=== PATIENT | female | born 1940 | race Caucasian/White ===

== ENCOUNTER → 2023-10-23 | Outpatient (CLI) | payer MEDICARE, SELFPAY ==
--- NOTE | 2023-10-23 13:45 | ECHOD_ITS ---
Reason For Study: Dyspnea/SOB Procedure This was a 2D Doppler, Color Flow transthoracic echocardiogram. Exam performed in department. Left Ventricle Normal LV size. The estimated ejection fraction is 60 %. Stage 2 diastolic dysfunction. No regional wall motion abnormalities noted. Right Ventricle Normal RV size. Normal systolic function. Atria The left atrium is mildly enlarged. Normal right atrium. No doppler evidence for ASD. Mitral Valve There is no mitral valve stenosis. Mild (1+) mitral valve insufficiency. Tricuspid Valve There is no tricuspid stenosis. Mild tricuspid valve insufficiency. Pulmonary artery systolic pressure is 45 mmHg. Aortic Valve Aortic sclerosis, no stenosis. Trisinus/trileaflet aortic valve. There is no aortic stenosis. No aortic valve insufficiency. Pulmonic Valve There is no pulmonic valvular stenosis. No pulmonic valve insufficiency. Great Vessels Normal aortic root. Pericardium/Pleural No pericardial effusion. MMode/2D Measurements & Calculations LVIDd: 3.8 cm IVSd: 1.0 cm Ao root diam: 3.0 cm LVIDs: 2.6 cm LVPWd: 0.90 cm LA dimension: 4.3 cm RVDd: 3.8 cm FS: 32.7 % LAV(MOD-bp): 67.8 ml LVAd ap4: 21.3 cm2 SV(MOD-sp4): 30.7 ml LAV(MOD-bp) Indexed: 42.3 ml/m2 LVLd ap4: 6.2 cm LAV(MOD-sp2): 67.6 ml EDV(MOD-sp4): 58.9 ml LAV(MOD-sp4): 63.6 ml EDV(sp4-el): 61.6 ml LVAs ap4: 14.1 cm2 LVLs ap4: 5.9 cm ESV(MOD-sp4): 28.2 ml ESV(sp4-el): 28.5 ml EF(MOD-sp4): 52.1 % EF(sp4-el): 53.8 % SV(sp4-el): 33.1 ml LA A4 area: 20.8 cm2 RA A4 area: 15.9 cm2 TAPSE: 1.7 cm Time Measurements MV dec time: 0.20 sec Doppler Measurements & Calculations MV E max dar: 69.7 cm/sec Lat Peak E' Dar: 7.3 cm/sec Med Peak E' Dar: 6.5 cm/sec MV A max dar: 69.7 cm/sec E/E' lat: 9.6 E/E' med: 10.7 MV E/A: 1.0 MV V2 max: 92.5 cm/sec MV P1/2t max dar: 92.5 cm/sec Ao V2 max: 120.9 cm/sec MV max P.4 mmHg MV P1/2t: 78.8 msec Ao max P.8 mmHg MV V2 mean: 56.6 cm/sec MV dec slope: 343.6 cm/sec2 Ao V2 mean: 86.4 cm/sec MV mean P.5 mmHg Ao mean P.4 mmHg MV V2 VTI: 23.4 cm MVA(P1/2t): 2.8 cm2 Ao V2 VTI: 30.3 cm AV (velocity ratio): 0.70 LV V1 max: 84.8 cm/sec MR max dar: 507.3 cm/sec PA V2 max: 72.9 cm/sec LV V1 max P.9 mmHg MR max P.9 mmHg LV V1 mean P.7 mmHg LV V1 mean: 61.9 cm/sec LV V1 VTI: 21.3 cm TR max dar: 306.1 cm/sec TR max P.5 mmHg ECHO/Echo Complete Interpretation Summary The estimated ejection fraction is 60 %. Stage 2 diastolic dysfunction. The left atrium is mildly enlarged. Mild (1+) mitral valve insufficiency. Ordering Physician: Joseph Latif Referring Physician: Joseph Latif Performed By: Rob Quesada RCS
--- NOTE | 2023-10-23 13:45 | CT_ITS ---
EXAM: CT CHEST WITHOUT INTRAVENOUS CONTRAST CLINICAL INDICATION: Follow up abnormal CT with GGO, interstitial thick -- TECHNIQUE: Helically acquired images were obtained of the chest without intravenous contrast. This CT exam was performed using one or more of the following dose reduction techniques: automated exposure control, adjustment of the mA and/or kV according to patient size, and/or use of iterative reconstruction technique. RADIATION DOSE: CTDIvol = 5.26 mGy, DLP = 334.85 mGy-cm COMPARISON: No relevant prior studies available. FINDINGS: LUNGS AND PLEURAL SPACES: Hyperexpansion of the lungs consistent with COPD. Diffuse interstitial prominence consistent with fibrosis. Widespread patchy areas of irregular density most consistent with focal areas of fibrosis Bilateral diffuse bronchiectasis and probable bronchitis. Findings worse in the posterior segment of the right upper lobe and especially in the right middle lobe and lingula. Several probable areas of mucous plugging. Scarring in both lung apices. There is an 8 mm nodule in the lateral mid left lung for which follow-up recommended in 12 months. No pneumothorax. No definite focal infiltrates. No effusions. HEART: Coronary artery calcifications are seen. Heart size is normal. No pericardial effusion. MEDIASTINUM: Although no gross mediastinal or hilar mass or adenopathy is seen, adenopathy is difficult to exclude without IV contrast was not given. Esophagus is unremarkable. No hiatal hernia. THYROID: Unremarkable. No thyroid lesions. BONES/JOINTS: Degenerative changes throughout the bones. Partial compression fracture of T4, L1 and L2. VASCULATURE: Calcified plaque of the aorta with no aneurysm. CT/Chest without Contrast IMPRESSION: 1. Severe COPD with interstitial fibrosis. Widespread areas of probable patchy fibrosis. Widespread bronchiectasis and chronic bronchitis most pronounced in the right apex, right middle lobe, and lingula. 2. 8mm nodule in the mid lateral left lung needs follow-up in 12 months. Electronically Signed: Willy Maguire MD at 23:02 EST ,
--- OUTSIDE RECORDS SUMMARY | 2023-10-23 22:14 | XMS RPT_ITS | CCD ---
Author Name Unknown Address [address] [facility] [address] [place] [address] Organization [facility] Care Team Providers Care Practice Consultant Name Role Phone NOHEMY COLVIN MD Primary Care Unavailable LATOUNOHEMY Soto MD Consulting Unavailable LATOUF, NOHEMY JENSEN Attending Unavailable LATOUF, NOHEMY JENSEN Admitting Unavailable PROVIDER, UNKNOWN Consulting Unavailable PROVIDER, UNKNOWN Consulting Unavailable PROVIDER, UNKNOWN Consulting Unavailable LATOUNOHEMY Soto MD Consulting Unavailable LATOUNOHEMY Soto MD Attending Unavailable LATOUNOHEMY Soto MD Referring Unavailable LATOUNOHEMY Soto MD Admitting Unavailable LATOUNOHEMY Soto MD Primary Care Unavailable PROVIDER, UNKNOWN Consulting Unavailable PROVIDER, UNKNOWN Consulting Unavailable PROVIDER, UNKNOWN Consulting Unavailable MIGUEL CORBETT Primary Care Unavailable MIGUEL CORBETT Attending Unavailable LATNOHEMY ALFONSO MD Consulting Unavailable MIGUEL CORBETT Admitting Unavailable PROVIDER, UNKNOWN Consulting Unavailable PROVIDER, UNKNOWN Consulting Unavailable PROVIDER, UNKNOWN Consulting Unavailable LATOUNOHEMY Soto MD Primary Care Unavailable LATOUNOHEMY Soto MD Consulting Unavailable LATOUNOHEMY Soto MD Attending Unavailable LATOUCharles, NOHEMY JENSEN Admitting Unavailable PROVIDER, UNKNOWN Consulting Unavailable PROVIDER, UNKNOWN Consulting Unavailable PROVIDER, UNKNOWN Consulting Unavailable LATNOHEMY ALFONSO MD Attending Unavailable LATOUF, NOHEMY JENSEN Admitting Unavailable LATOUNOHEMY Soto MD Consulting Unavailable LATOUNOHEMY Soto MD Primary Care Unavailable PROVIDER, UNKNOWN Consulting Unavailable PROVIDER, UNKNOWN Consulting Unavailable PROVIDER, UNKNOWN Consulting Unavailable LATOUNOHEMY Soto MD Consulting Unavailable LATOUCharles, NOHEMY JENSEN Attending Unavailable LATOUF, NOHEMY JENSEN Admitting Unavailable LATOUNOHEMY Soto MD Primary Care Unavailable PROVIDER, UNKNOWN Consulting Unavailable PROVIDER, UNKNOWN Consulting Unavailable PROVIDER, UNKNOWN Consulting Unavailable Problems Active Problems Problem Classification Problem Date Documented Da te Episodic/Chronic Anxiety disorders (1 source) Anxiety disorder, unspecified; Translations: [Anxiety disorder, unspecified] Onset: 05-10-2023 Chronic Deficiency and other anemia (2 sources) Iron deficiency anemia, unspecified; Translations: [Iron deficiency anemia, unspecified] Onset: 05-10-2023 Episodic Disorders of lipid metabolism (1 source) Pure hypercholesterolemi a, unspecified; Translations: [Pure hypercholesterolemi a, unspecified] Onset: 05-10-2023 Chronic Essential hypertension (2 sources) Essential (primary) hypertension; Translations: [Essential (primary) hypertension] Onset: 11-03-2022 Chronic Occlusion or stenosis of precerebral arteries (1 source) Occlusion and stenosis of bilateral carotid arteries; Translations: [Occlusion and stenosis of bilateral carotid arteries] Onset: 05-10-2023 Chronic Osteoporosis (1 source) Age-related osteoporosis without current pathological fracture; Translations: [Age-related osteoporosis without current pathological fracture] Onset: 05-10-2023 Chronic Other lower respiratory disease (1 source) Interstitial pulmonary disease, unspecified; Translations: [Interstitial pulmonary disease, unspecified] Onset: 04-28-2023 Chronic Other nutritional; endocrine; and metabolic disorders (1 source) Other disorders of plasma-protein metabolism, not elsewhere classified; Translations: [Other disorders of plasma-protein metabolism, not elsewhere classified] Onset: 05-10-2023 Chronic Unclassified (1 source) Cough, unspecified; Translations: [Cough, unspecified] Onset: 04-28-2023 Past or Other Problems Problem Classification Problem Date Documented Da te Episodic/Chronic Other aftercare (1 source) termite exterminator helper (current) use of aspirin; Translations: [shelter (current) use of aspirin] Onset: 05-10-2023 Episodic Other lower respiratory disease (2 sources) Shortness of breath; Translations: [Shortness of breath] Onset: 05-10-2023 Episodic Other lower respiratory disease (1 source) Hypoxemia; Translations: [Hypoxemia] Onset: 05-10-2023 Episodic Other lower respiratory disease (1 source) Other disorders of lung; Translations: [Other disorders of lung] Onset: 05-10-2023 Episodic Other lower respiratory disease (1 source) Other nonspecific abnormal finding of lung field; Translations: [Other nonspecific abnormal finding of lung field] Onset: 04-28-2023 Episodic Pneumonia (except that caused by tuberculosis or sexually transmitted disease) (1 source) Pneumonia, unspecified organism; Translations: [Pneumonia, unspecified organism] Onset: 05-10-2023 Episodic Unclassified (1 source) Cough, unspecified; Translations: [Cough, unspecified] Onset: 04-28-2023 Results Test Name Value Interpretation Reference Range Facil ity Encounters Encounter Date Encounter Type Care Provider Facility Start: 10-05-2023 ambulatory MIGUEL CORBETT [facility] Start: 07-18-2023 End: 07-18-2023 ambulatory NOHEMY JENSEN [facility] Start: 07-10-2023 End: 07-10-2023 ambulatory NOHEMY JENSEN [facility] Start: 05-10-2023 End: 05-13-2023 Evaluation and management of inpatient NOHEMY JENSEN [facility] Start: 04-28-2023 End: 04-28-2023 ambulatory NOHEMY JENSEN [facility] Start: 11-03-2022 End: 11-03-2022 ambulatory NOHEMY JENSEN [facility] Payers Date Payer Category Payer Unknown [id number] [id number] 1940 Unknown [id number] 2.16.8 [id number] 1940 Unknown [id number] 2.16.8 [id number] 1940 Unknown [id number] 2.16.8 [id number] 1940 Unknown [id number] 2.16.8 [id number] 1940 Unknown [id number] [id number] [id number] Medicare [id number] Discharge summary note 05-16-2023 Note Date & Type Note Facility 05-16-2023 Note [facility] DISCHARGE SUMMARY NAME ACCOUNT SEX AGE ADMIT DISCHARGE PT MED. RECORD# NUMBER DATE DATE TYPE LINNETTE JEONG [id number] F 82 05/10/23 05/13/23 1 [id number] ROOM: [facility] DATE OF : 1940 ATTENDING PHYSICIAN: Nohemy Colvin FINAL DIAGNOSES: 1. Community-acquired pneumonia with failure of outpatient therapy. 2. Iron-deficiency anemia. 3. Hypoxia secondary to a combination of pneumonia and chronic interstitial lung disease. 4. Chronic lung disease. 5. Hypertension. 6. Abnormal CT scan of the chest. DIAGNOSTIC DATA: Studies obtained this hospital stay: CT scan of the chest with contrast showed no pulmonary embolism. Patchy bilateral infiltrates were present. Bronchial wall thickening was present bilaterally and nonspecific mediastinum and hilar lymph nodes. Laboratory data on the day of discharge showed a WBC of 12.1, hemoglobin 10.9, hematocrit 33.4, and platelet count 467,000 with 75.1% neutrophils and 13.6% lymphocytes. Sodium was 136, potassium 3.7, BUN 7, creatinine 0.73, and glucose 94. SGOT was 19, SGPT 14, alkaline phosphatase 95, albumin 2.5, and total bilirubin 0.6. Other significant laboratory data this hospital stay: Admission WBC was 26.9 with left shift and neutrophils of 87.1. Initial sodium was 131, and glucose was 118. Albumin was 3. Lactate was negative at 1.1, and troponin was negative. Total iron was 15, TIBC 218, and iron saturation 7%. COVID-19 swab was negative. HOSPITAL COURSE: 1. Community-acquired pneumonia with failure of outpatient therapy. The patient initially presented to the office with increasing cough, mucopurulent sputum and a chest x-ray showed patchy infiltrates in the right upper lobe and left suprahilar region. The patient was started on cefuroxime and a Z-Adithya and also was given prednisone 20 mg twice a day for 5 days. She felt initially that she was getting better, and then she started getting worse. She became more short of breath. The cough got worse, and she presented to the Emergency Room for evaluation. She was found to have multilobe pneumonia. She was admitted to a medical-surgical floor. Cultures were obtained, and she was started on levofloxacin 500 mg daily. She gradually improved, and she was discharged home on Levaquin 500 mg daily to complete a 10-day course of antibiotics. 2. Hypoxia secondary to a combination of pneumonia and chronic interstitial lung Page 1 of 3 LINNETTE JEONG Discharge Summary LINNETTE JEONG : 1940 disease. She required oxygen support initially with her oxygenation dropping to the low to mid-80s on room air. DuoNeb was added, and the patient was given an incentive spirometer with Acapella, and she gradually improved. Oxygen was weaned off, and she was able to maintain her oxygen saturation above 92% on room air. 3. Chronic interstitial lung disease. It seems that it is gradually getting worse. She had a CT scan of the chest in addition to the multilobe pneumonia. It showed nonspecific lymphadenopathy. I discussed this issue with the patient, and she would benefit from seeing a chair pad maker as an outpatient. 4. Iron-deficiency anemia with iron saturation of 7%. Last colonoscopy was normal on July 16, 2013, and it was deemed that the patient does not need any future colonoscopies. In the presence of iron-deficiency anemia, I discussed with the patient that further work-up may be needed. Most likely the patient would benefit from seeing a manager reading, especially in the presence of lymphadenopathy and/or referral to see a vp purchasing to rule out a GI source of blood loss. 5. Hypoalbuminemia, a complicating factor - likely secondary to the worsening pneumonia. We will recheck as an outpatient. 6. The rest of the medical problems were stable at the time of this admission and were monitored. On the day of discharge, the patient was feeling well. She denies any chest pain. No shortness of breath. She was still having some intermittent cough. Blood pressure was 138/78, heart rate 92, respiratory rate 16, temperature 98.1, and oxygen saturation 92% on room air. Skin is warm and dry. Neck is supple. No nodes. No masses. No JVD. No carotid bruit. No thyroid enlargement. Lungs are symmetrical with equal lung expansion and diminished breath sounds bilaterally with rare scattered crackles bilaterally. Respiratory effort is normal. Heart is a regular rate and rhythm. Abdomen is soft and nontender. Extremities with no edema. The above was discussed with the patient in detail. All questions were answered, and she expressed understanding of the plan of care. DISPOSITION: The patient was discharged home in stable condition to be followed as an outpatient. MEDICATIONS ON DISCHARGE: Levaquin 500 mg daily for 7 more days (2 days of Levaquin was given in the hospital to take home with her and 5 days to [facility] in [place]). Continue the same other (more content not included)... [facility] Clinical Note 05-16-2023 Note Date & Type Note Facility 05-16-2023 Note [facility] PROGRESS NOTE NAME ACCOUNT SEX AGE ADMIT DISCHARGE PT MED. RECORD# NUMBER DATE DATE TYPE LINNETTE JEONG [id number] F 82 05/10/23 1 J [id number] ROOM: [facility] DATE OF : 1940 DICTATING PHYSICIAN: Nohemy Colvin DATE OF SERVICE: May 12, 2023 SUBJECTIVE: The patient is feeling significantly better. She denies any shortness of breath. She has been off oxygen for a while this morning, and her followup oxygen saturation was 94%. She felt more anxious and jittery after receiving the DuoNeb treatment last evening. Her cough has improved, and she is doing the incentive spirometry. She is achieving 750 mL. OBJECTIVE: GENERAL APPEARANCE: No acute distress, lying down in bed comfortably. VITALS SIGNS: Blood pressure 135/73, heart rate 91, respiratory rate 14, temperature 98.9, oxygen saturation 94% on room air. SKIN: Warm and dry. LUNGS: Symmetrical, equal lung expansion, diminished breath sounds bilaterally with rare scattered crackles bilaterally. No wheezing. DIAGNOSTIC DATA: Laboratory data: WBC is 13.1, hemoglobin 10.7, hematocrit 33.6, and platelet count 471,000, neutrophils are 78.0%, and lymphocytes 9.7%. Sodium is 136, potassium 3.8, BUN 8, creatinine 0.73. Glucose is 86. ASSESSMENT/PLAN: 1. Community acquired pneumonia with failure of outpatient therapy. She is improving at this time. We will continue current treatment with Levaquin, and we will provide oxygen to maintain O2 saturation more than 92%. 2. Anemia, which has gotten worse since admission. We will obtain baseline anemia workup including iron studies, B12, and folate levels, and decide the need for further intervention. 3. Abnormal CT scan of the chest including bronchial wall thickening, nonspecific mediastinal and hilar lymph nodes in the context of current pneumonia and known chronic interstitial lung disease. The patient may benefit from seeing a chair pad maker as an outpatient. 4. Hypoxia secondary to a combination of chronic interstitial disease and pneumonia, improved significantly. Today, the patient is off oxygen. We will monitor for the next 24 hours. 5. Possible discharge in the morning if stable. 6. Anxiety and jitteriness likely secondary to DuoNeb. We will switch to DuoNeb every 4 hours p.r.n. rather than routine, and we will monitor progress. 7. Above was discussed with the patient in details. All questions were answered, and Page 1 of 2 LINNETTE JEONG Progress Note LINNETTE JEONG : 1940 she expressed understanding of the plan of care. Dictated By: Nohemy Colvin MD 05/12/23 09:12 JOB #: [id number] Transcribed By: am 05/12/23 09:26 Electronically signed by: Nohemy Colvin M.D. 05/16/23 08:33 Page 2 of 2 LINNETTE JEONG Progress Note [facility] History and physical note 05-12-2023 Note Date & Type Note Facility 05-12-2023 [facility] HISTORY & PHYSICAL NAME ACCOUNT SEX AGE ADMIT DISCHARGE PT MED. RECORD# NUMBER DATE DATE TYPE LINNETTE JEONG [id number] F 82 05/10/23 1 [id number] ROOM: [facility] DATE OF : [birth year] DICTATING PHYSICIAN: Nohemy Colvin CHIEF COMPLAINT: Cough and shortness of breath. HISTORY OF PRESENT ILLNESS: The patient is a pleasant 82-year-old lady with a past medical history significant for chronic interstitial lung disease, hypertension, and hypercholesterolemia who was in her usual states of health until about 2 weeks ago when she started noticing increasing cough, then she had a mucopurulent sputum, and she was intermittently shortness of breath. She presented to the office on April 28, 2023 and she had rales in both lung johns. A chest x-ray was done and showed patchy infiltrates in the right upper lobe and left suprahilar region. The patient was started on cefuroxime 250 mg twice a day for 7 days, and also she received a Z-Adithya. She was also intermittently wheezing, and she was given prednisone 20 mg twice a day for 5 days. She felt that she was getting better, but then the symptoms recurred. She started having increasing cough, and she called the office on May 09, 2023. She started coughing up yellow phlegm. I have extended the cefuroxime treatment for 3 more days, and she was to come to the office tomorrow for further evaluation, but yesterday she got worse and she was more short of breath. She started becoming more hoarse, and she presented to the emergency room for evaluation. In the emergency room, a CT scan of the chest with contrast was done. It showed no evidence of PE, but it showed patchy bilateral infiltrates with peribronchial thickening and prominent bilateral hilar lymph nodes with nonspecific paratracheal lymph nodes. The patient was admitted for further treatment. When I saw the patient this morning, she was feeling somewhat better. She continued to have intermittent cough, and she had audible wheezing. She was also hoarse when she talked, which started 3 to 4 days ago. PAST MEDICAL HISTORY: (1) Chronic interstitial lung disease. (2) Hypertension. (3) Hypercholesterolemia. (4) Osteoporosis. (5) History of supraventricular tachycardia. (6) Carotid artery plaque bilaterally. (7) Cystocele with uterine prolapse. PAST SURGICAL HISTORY: (1) Prolapsed bladder repair in 2015. (2) Bilateral cataract extraction in 2012. (3) D&C. (4) Vaginal hysterectomy. (5) Previous tubal ligation. MEDICATIONS: Current medications at home: Amlodipine 5 mg daily, metoprolol succinate 25 mg daily, pravastatin 20 mg daily, fluticasone 2 sprays in each nostril as needed, Estrace 0.5 mg twice weekly, aspirin 81 mg daily, calcium with vitamin D 500 Page 1 of 4 LINENTTE JEONG History & Physical LINNETTE JEONG :1940 mg daily, and recently she was treated with Z-Adithya on April 28, 2023 and cefuroxime 250 mg twice a day in addition to prednisone 20 mg twice a day for 5 days started on April 28. ALLERGIES: No known drug allergies. FAMILY HISTORY: Father at age 86. He had heart disease. Mother at age 30 from tuberculosis SOCIAL HISTORY: The patient is a . She has two children. She never smoked. She occasionally drinks alcohol. REVIEW OF SYSTEMS: The patient denies any dizziness, lightheadedness, or headaches. She complained of having intermittent cough productive of yellowish sputum associated with shortness of breath and also recently she started becoming more hoarse. She denies any chest pain. No GI or symptoms. No lower extremity edema. The rest of the review of systems were discussed with the patient, and they were negative. PHYSICAL EXAMINATION GENERAL APPEARANCE: The patient was lying down in bed comfortably in no acute distress, well-developed, and well-nourished. VITAL SIGNS: Blood pressure 108/50, heart rate 89, respiratory rate 18, temperature 98.8, and oxygen saturation 84% on room air and 92% on 1 liter nasal cannula. SKIN: Warm and dry. HEENT: Unremarkable. NECK: Neck is supple. No nodes. No masses. No JVD. No carotid bruit. No thyroid enlargement. LUNGS: Symmetrical, equal lung expansion, diminished breath sounds bilaterally with scattered crackles and scattered expiratory wheezes bilaterally. Respiratory effort is normal. HEART: Regular rate and rhythm. ABDOMEN: Soft and nontender. EXTREMITIES: Extremities with no edema. NEUROLOGIC: The patient was alert and oriented x3. Page 2 of 4 LINNETTE JEONG History & Physical LINNETTE JEONG :1940 DIAGNOSTIC DATA: Laboratory data: Laboratories in the emergency room yesterday showed a WBC of 26.9, hemoglobin 11.5, hematocrit 35.6, and platelet count 536,000, neutrophils were 87.1%, and lymphocytes 4.6%. Sodium was 131, potassium 4.2, BUN 14, creatinine 0.77, and glucose 118. SGOT is 22, SGPT 31, alkaline ph (more content not included)... [facility] Summary Purpose Family History No Family History Records FoundNo Family History Records Found Advance Directives No Advanced Directives Records FoundNo Advanced Directives Records Found Additional Source Comments INFORMATION SOURCE (unrecogn ized section and content) DATE CREATED AUTHOR AUTHOR'S ORGANIZ ATION 10/06/2023 [facility] FOR RECORDS PERTAINING TO PATIENTS WHO ARE OR HAVE BEEN ENROLLED IN A CHEMICAL DEPENDENCY/SUBSTANCEABUSE PROGRAM, SOME INFORMATION MAY BE OMITTED. This clinical summary was aggregated from multiple sources. Caution should be exercised in using it in the provision of clinical care. This summary normalizes information from multiple sources, and as a consequence, information in this document may materially change the coding, format and clinical context of patient data. In addition, data may be omitted in some cases. CLINICAL DECISIONS SHOULD BE BASED ON THE PRIMARY CLINICAL RECORDS. [employer] provides no warranty or guarantee of the accuracy or completeness of information in this document.
== END | disposition home or self-care (01) ==
PROVIDERS: PCP Internal Medicine; Referring Provider Internal Medicine Critical Care Medicine; Visit Provider Internal Medicine Critical Care Medicine
DX: R06.02 Shortness of breath (principal); R93.89 Abnormal findings on diagnostic imaging of other specified body structures; R60.9 Edema, unspecified
CPT/HCPCS: 71250; 93306

== ENCOUNTER → 2024-02-19 | Outpatient (CLI) | payer MEDICARE, SELFPAY | END | disposition home or self-care (01) | PROVIDERS: PCP Internal Medicine; Referring Provider Nurse Practitioner Acute Care; Visit Provider Nurse Practitioner Acute Care | DX: R06.02 Shortness of breath (principal) | CPT/HCPCS: 94060; 94726; 94729 ==

== ENCOUNTER → 2024-03-26 | Outpatient (CLI) | payer MEDICARE, SELFPAY ==
[2024-03-26 13:43] VITALS: PULSE 68; PULSE 69; PULSE 78; PULSE 90; PULSE 93; PULSE 94; PULSE 96; O2SAT 90; O2SAT 91; O2SAT 92; O2SAT 93; O2SAT 94
--- NOTE | 2024-03-27 12:40 | PCM.PSN.6M ---
PSN 6 Minute Walk Test 6 Minute Walk Test 6 Minute Walk Test: 6 Minute Walk Test PSN:6-Minute Walk Test Start: 03/26/24 13:43 Freq: Status: Active Protocol: RESP.6MINW Document 03/26/24 13:43 JASPERRUSLAN (Rec: 03/26/24 13:45 ANNEJELANIRUSLAN [id number]) 6 Minute Walk Test Date Performed 03/26/24 Time Performed 13:30 Height 5 ft 3 in Weight: 118 lb Weight in Pounds 118.[address]: Tessie Balbuena SALES SUPPORT TECHNICIAN Assistive device used: None Pre-test Oxygen Delivery Method Room Air Pulse Ox (%) 92 Pulse Rate (60-100 beats/min) 68 Dyspnea Betty Scale (0-10) 0 Exertion Betty Scale (6-20) 6 1st minute Oxygen Delivery Method Room Air Pulse Ox (%) 93 Pulse Rate (60-100 beats/min) 78 2nd minute Oxygen Delivery Method Room Air Pulse Ox (%) 92 Pulse Rate (60-100 beats/min) 90 3rd minute Oxygen Delivery Method Room Air Pulse Ox (%) 91 Pulse Rate (60-100 beats/min) 93 4th minute Oxygen Delivery Method Room Air Pulse Ox (%) 92 Pulse Rate (60-100 beats/min) 93 5th minute Oxygen Delivery Method Room Air Pulse Ox (%) 91 Pulse Rate (60-100 beats/min) 96 6th minute Oxygen Delivery Method Room Air Pulse Ox (%) 90 Pulse Rate (60-100 beats/min) 94 Dyspnea Betty Scale (0-10) 3 Exertion Betty Scale (6-20) 12 Post-test Oxygen Delivery Method Room Air Pulse Ox (%) 94 Pulse Rate (60-100 beats/min) 69 Full Laps Walked 16 Partial Lap, Number of Tiles Walked 34 Total Distance Walked (ft) 978 Interpretation Interpretation: The patient ambulated 978 feet over the course of 6 minutes beginning on room air without assistive devices. Pretesting oxygen saturation was noted to be 92% on room air. With ambulation, the ирина oxygen saturation was 90%. There was no significant exertional oxygen desaturation. Recommendations Recommendations: There is no indication for the use of supplemental oxygen at this time.
== END | disposition home or self-care (01) ==
PROVIDERS: PCP Internal Medicine; Referring Provider Nurse Practitioner Acute Care; Visit Provider Nurse Practitioner Acute Care
DX: R06.02 Shortness of breath (principal)
CPT/HCPCS: 94618